=== PATIENT | male | born 1970 | race African-American/Black ===

== ENCOUNTER 2022-10-02 19:12 | Emergency (ER) | payer OTHER ==
[2022-10-02 19:49] VITALS: BP 135/83; PULSE 69; RESP 18; TEMP 98.2; BMI 25.2
== END 2022-10-03 01:00 | disposition left against medical advice (07) ==
LOC: JER 19:12 → JERFT 19:12 → JER 10-03 01:00
DX: M54.50 Low back pain, unspecified (principal); M54.6 Pain in thoracic spine; V89.2XXA Person injured in unspecified motor-vehicle accident, traffic, initial encounter
CPT/HCPCS: 99281-25

== ENCOUNTER 2022-10-03 19:29 | Emergency (ER) | payer OTHER ==
[2022-10-03 19:35] VITALS: BP 130/77; PULSE 68; RESP 17; TEMP 98; BMI 25.6
[2022-10-03] MEDS ORDERED: KETOROLAC TROMETHAMINE 30 MG/1 ML VIAL IM ONE (21:19)
[2022-10-03] MEDS ORDERED: KETOROLAC TROMETHAMINE 30 MG/1 ML VIAL ONE (21:23)
== END 2022-10-03 22:00 | disposition home or self-care (01) ==
LOC: JERFT 19:29
PROC: 3E0233Z Introduction of Anti-inflammatory into Muscle, Percutaneous Approach (ICD-10-PCS; principal; 2022-10-03)
DX: M54.6 Pain in thoracic spine (principal); V49.40XA Driver injured in collision with unspecified motor vehicles in traffic accident, initial encounter
CPT/HCPCS: 71046-TC-FY; 72070-TC-FY; 99284-25

== ENCOUNTER 2023-04-10 15:46 | Emergency (ER) | payer BC, OTHER ==
[2023-04-10 16:04] VITALS: RESP 16; BMI 25.6
[2023-04-10 17:10] VITALS: BP 141/94; PULSE 75; TEMP 97.8
== END 2023-04-10 17:10 | disposition home or self-care (01) ==
LOC: FER 15:46
DX: R05.9 Cough, unspecified (principal); R09.81 Nasal congestion; J00 Acute nasopharyngitis [common cold]; Z20.822 Contact with and (suspected) exposure to COVID-19
CPT/HCPCS: 0241U-QW; 99283-25